=== PATIENT | female | born 1950 | race Caucasian/White ===

== ENCOUNTER 2017-03-12 10:19 | Emergency (ER) | payer BC ==
[2017-03-12 12:40] VITALS: BP 133/89
[2017-03-12] MEDS ORDERED: Albuterol 2.5 MG/3 ML NEB.SOL* (0.083%) INH ONE (12:54)
[2017-03-12] MEDS ORDERED: predniSONE TAB* 20 MG PO ONE (12:54)
--- NOTE | 2017-03-12 12:54 | UC ---
Respiratory Complaint HPI - HPI Summary HPI Summary: 66 y/o female presents to the urgent care c/o persistent dry cough, nasal congestion with yellowish phlegm for the past 2 weeks. Symptoms improved. But about 5 days ago symptoms got worse. Now for the past 2 days, she feels mild SOB with wheezing. she thinks her asthma symptoms have been triggered. Pt denies fever, chest pain, abdominal pain, N/V/D. - History of Current Complaint Chief Complaint: UCRespiratory Stated Complaint: cold symptoms Time Seen by Provider: 03/12/17 12:46 Hx Obtained From: Patient Hx Last Menstrual Period: menopausal ?: No Onset/Duration: Gradual Onset, Lasting Weeks - 2 weeks, Still Present Timing: Intermittent Episodes Severity Initially: Mild Severity Currently: Moderate Pain Intensity: 0 Pain Scale Used: 0-10 Numeric Character: Cough: Productive, Sputum Description: - yellowish Aggravating Factors: Deep Breaths Alleviating Factors: Bronchodilator Associated Signs And Symptoms: Positive: Dyspnea, Wheezing, URI, Nasal Congestion. Negative: Fever - Risk Factors Pulmonary Embolism Risk Factors: Negative Cardiac Risk Factors: Negative Pseudomonas Risk Factors: Negative Tuberculosis Risk Factors: Negative - Allergies/Home Medications Allergies/Adverse Reactions: Allergies Allergy/AdvReac Type Severity Reaction Status Date / Time Shellfish Allergy Allergy Vomiting Verified 03/12/17 12:40 dust, mold Allergy Congestion Uncoded 03/12/17 12:40 skunk Allergy Wheezing Uncoded 03/12/17 12:40 PMH/Surg Hx/FS Hx/Imm Hx Previously Healthy: Yes Respiratory History: Asthma - Surgical History Surgical History: Yes Surgery Procedure, Year, and Place: c section x 3, appy, hysterectomy - Family History Family History: Breast Cancer - Social History Occupation: Employed Full-time Lives: With Family Alcohol Use: Rare Substance Use Type: None Smoking Status (MU): Former Smoker Review of Systems Constitutional: Negative Skin: Negative Eyes: Negative ENT: Nasal Discharge - yellowish nasal discharge Respiratory: Shortness Of Breath, Cough, Other - wheezing Cardiovascular: Negative Gastrointestinal: Negative Genitourinary: Negative Motor: Negative Neurovascular: Negative Musculoskeletal: Negative Neurological: Negative Psychological: Negative Is Patient Immunocompromised?: No All Other Systems Reviewed And Are Negative: Yes Physical Exam Triage Information Reviewed: Yes Vital Signs: Initial Vital Signs Temp 98.4 F 03/12/17 12:29 Pulse 98 03/12/17 12:29 Resp 16 03/12/17 12:29 BP 133/89 03/12/17 12:29 Pulse Ox 97 03/12/17 12:29 - Additional Comments Vital Signs Reviewed: Yes General: well developed, well nourished female sitting in the examining table w/ o any apparent distress Eyes: Positive: Conjunctiva Clear - PERRLA, EOMI, fundi grossly normal ENT: Positive: Normal ENT inspection, Hearing grossly normal, Pharynx normal, Nasal congestion - edematous and erythematous nasal mucosa, Nasal drainage - yellowish drainage, TMs normal. Negative: Tonsillar swelling, Tonsillar exudate Neck: Positive: Supple, Nontender, No Lymphadenopathy Respiratory: no orthopnea or dyspnea. Able to speak in full sentences, no retractions or accessory muscle use, no tripod position, stridor, or head bobbing. mild wheezing in the left upper posterior lung , no rhonchi, rales. Cardiovascular: Positive: RRR, No Murmur, Pulses Normal, Brisk Capillary Refill Abdomen Description: Positive: Nontender, No Organomegaly, Soft. Negative: CVA Tenderness (R), CVA Tenderness (L) Bowel Sounds: Positive: Present Musculoskeletal Exam: Normal Musculoskeletal: Positive: Strength Intact, ROM Intact, No Edema Neurological Exam: Normal Psychological Exam: Normal Skin Exam: Normal UC Diagnostic Evaluation - Laboratory O2 Sat by Pulse Oximetry: 97 Respiratory Course/Dx - Course Course Of Treatment: 66 y/o female presents to the urgent care c/o persistent dry cough, nasal congestion with yellowish phlegm for the past 2 weeks. Symptoms improved. But about 5 days ago symptoms got worse. Now for the past 2 days, she feels mild SOB with wheezing. she thinks her asthma symptoms have been triggered. Pt denies fever, chest pain, abdominal pain, N/V/D. Hx obtained. Pt with miold B/L wheezing in the left upper lungs, no rhonchi, crackles or rales on examination. O2Sat: 97%. Pt with an asthma exacerbation. Pt given albuterol treatment and Prednisone PO at the clinic. Pt tolerated well medication and felt better. Patient prescribed Prednisone taper dose and albuterol inhaler and Tessalon PO for cough as directed below. The patient was recommended to increase fluid intake. Take medications as recommended. Pt advised to go to the nearest ER if symptoms worsen. Otherwise f/u with her PCP for further managment in her asthma. Patient understood and agree with plan of care. - Differential Dx/Diagnosis Differential Diagnosis/HQI/PQRI: Asthma, Bronchitis, Lower Resp Infection, Other - pneumonia Provider Diagnoses: 1- Asthma exacerbation. 2-Cough Discharge - Discharge Plan Condition: Stable Disposition: HOME Prescriptions: Albuterol HFA INHALER* [Ventolin HFA Inhaler*] 2 puff INH Q4H PRN #1 mdi PRN Reason: Wheezing Benzonatate CAP* [Tessalon 100 MG CAP*] 100 mg PO TID PRN #15 cap PRN Reason: Cough predniSONE TAB* [Deltasone TAB*] 20 mg PO DAILY #8 tab Patient Education Materials: Asthma (ED) Forms: *Work Release Referrals: Penelope Watters PA [Primary Care Provider] - 3 Days Additional Instructions: 1-Take Prednisone PO as directed continue using the albuterol inhaler. Take Tessalon PO tabs to alleviate cough 2- If symptoms do not improve or worsen or your develop SOB with fever and severe wheezing please go immediately to the ER further evaluation and treatment. 3- F/u with your PCP in 3 days for further management on your Asthma
== END 2017-03-12 14:00 | disposition home or self-care (01) ==
LOC: UCCORT 10:19
DX: J45.901 Unspecified asthma with (acute) exacerbation (principal); R05 Cough; Z90.710 Acquired absence of both cervix and uterus; Z90.89 Acquired absence of other organs; Z87.891 Personal history of nicotine dependence
CPT/HCPCS: 99202; G0463; J7512

== ENCOUNTER 2018-08-27 09:06 | Emergency (ER) | payer MEDICARE ==
[2018-08-27 09:21] VITALS: BP 146/74
[2018-08-27] MEDS ORDERED: Albuterol 2.5 MG/3 ML NEB.SOL* (0.083%) INH ONE (09:25)
--- NOTE | 2018-08-27 09:42 | UC ---
Respiratory Complaint HPI - HPI Summary HPI Summary: cough x 1 days wheezing, chest tightness, sob, cough is dry , mild nasal congestion , pnd, no sore throat, no fever, no chills hx of asthma , no better with her albuterol inh - History of Current Complaint Chief Complaint: UCRespiratory Stated Complaint: ST,COUGH Time Seen by Provider: 08/27/18 09:23 Hx Obtained From: Patient Hx Last Menstrual Period: menopausal Onset/Duration: Gradual Onset, Lasting Days - 2, Still Present Timing: Constant Severity Initially: Moderate Severity Currently: Moderate Pain Intensity: 0 Character: Cough: Nonproductive Aggravating Factors: Allergens, Exertion, Deep Breaths Alleviating Factors: Nothing Associated Signs And Symptoms: Positive: Dyspnea, Wheezing, URI, Nasal Congestion. Negative: Fever, Chills, Hemoptysis, Dizziness, Calf Pain, Calf Swelling - Allergies/Home Medications Allergies/Adverse Reactions: Allergies Allergy/AdvReac Type Severity Reaction Status Date / Time shellfish derived Allergy Vomiting Verified 08/27/18 09:18 dust, mold Allergy Congestion Uncoded 08/27/18 09:18 skunk Allergy Wheezing Uncoded 08/27/18 09:18 Home Medications: Home Medications Loratadine/Pseudoephedrine [Allergy Relief D-24Hr Tablet] 1 tab PO DAILY [History Confirmed 08/27/18] PMH/Surg Hx/FS Hx/Imm Hx - Additional Past Medical History Additional PMH: endometriosis, miscarriage, HDH, dyslexia, osteoporosis, left 5th finger fx Respiratory History: Asthma - Surgical History Surgical History: Yes Surgery Procedure, Year, and Place: c section x 3, appy, hysterectomy - Family History Known Family History: Negative: Diabetes Family History: Breast Cancer - Social History Alcohol Use: Occasionally Substance Use Type: None Smoking Status (MU): Former Smoker Review of Systems All Other Systems Reviewed And Are Negative: Yes Constitutional: Positive: Negative Skin: Positive: Negative Eyes: Positive: Negative ENT: Positive: Sinus Congestion Respiratory: Positive: Shortness Of Breath, Cough Cardiovascular: Positive: Negative Is Patient Immunocompromised?: No Physical Exam Triage Information Reviewed: Yes Appearance: Well-Appearing, No Pain Distress, Well-Nourished Vital Signs: Initial Vital Signs Temp 97.8 F 08/27/18 09:14 Pulse 74 08/27/18 09:14 Resp 18 08/27/18 09:14 BP 146/74 08/27/18 09:14 Pulse Ox 99 08/27/18 09:14 Vital Signs Reviewed: Yes Eye Exam: Normal Eyes: Positive: Conjunctiva Clear ENT: Positive: Normal ENT inspection, Hearing grossly normal, Pharynx normal, Nasal congestion Neck: Positive: Supple, Nontender, No Lymphadenopathy Respiratory: Positive: No respiratory distress, No accessory muscle use, Wheezing Cardiovascular: Positive: RRR, No Murmur, Pulses Normal Skin Exam: Normal Respiratory Course/Dx - Differential Dx/Diagnosis Provider Diagnosis: Asthma exacerbation Discharge - Sign-Out/Discharge Documenting (check all that apply): Patient Departure All imaging exams completed and their final reports reviewed: No Studies - Discharge Plan Condition: Stable Disposition: HOME Prescriptions: predniSONE [Prednisone 20 MG TAB] 20 mg PO BID WITH MEALS #10 tablet Patient Education Materials: Asthma (DC) Referrals: Penelope Watters PA [Primary Care Provider] - 5 Days - Billing Disposition and Condition Condition: STABLE Disposition: Home
== END 2018-08-27 10:13 | disposition home or self-care (01) ==
LOC: UCCORT 09:06
DX: J45.901 Unspecified asthma with (acute) exacerbation (principal); R05 Cough; R09.81 Nasal congestion; Z91.013 Allergy to seafood; Z91.048 Other nonmedicinal substance allergy status; Z87.891 Personal history of nicotine dependence
CPT/HCPCS: 99212; G0463

== ENCOUNTER 2019-05-01 08:52 | Emergency (ER) | payer MEDICARE ==
--- OUTSIDE RECORDS SUMMARY | 2019-05-01 09:03 | XMS REPORT | Continuity of Care Document ---
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 Information Available Social History Type Date Description Comments Sex Unknown Tobacco Use Start: Unknown End: Unknown Patient is a former smoker Smoking Status Reviewed: 04/04/19 Patient is a former smoker Allergies, Adverse Reactions, Alerts Description No Known Drug Allergies Medications Active Medications SIG Qnty Indications Ordering Date Provider Loratadine 1 tab by mouth 60caps Unknown 10mg Capsules at bedtime as needed Montelukast Sodium 1 by mouth Unknown 10mg every day Tablets Cyclobenzaprine HCL take 1 tab by Unknown 10mg mouth 3 times a Tablets day as needed Aleve Unknown 220mg Tablets Kayleen-D 24 Hour as needed Unknown Allergy & Congestion 180-240mg Tablets ER 24HR Albuterol Sulfate HFA Unknown 108(90Base) mcg/Act Aerosol Immunizations Description No Information Available Vital Signs Date Vital Result Comment 04/04/2019 8:22am Height 64 inches 5'4" Weight 155.00 lb Heart Rate 107 /min BP Systolic Sitting 112 mmHg BP Diastolic Sitting 68 mmHg Respiratory Rate 12 /min Pain Level 0 O2 % BldC Oximetry 97 % BMI (Body Mass Index) 26.6 kg/m2 02/21/2019 9:32am Height 64 inches 5'4" Weight 157.00 lb Heart Rate 90 /min BP Systolic Sitting 120 mmHg BP Diastolic Sitting 73 mmHg Respiratory Rate 18 /min Body Temperature 97.8 F Pain Level 9 with use O2 % BldC Oximetry 98 % BMI (Body Mass Index) 26.9 kg/m2 Results Description No Information Available Procedures Date Code Description Status 02/21/2019 69309 Rad Shoulder Comp, Min. 2 Views Completed Medical Devices Description No Information Available Encounters Type Date Location Provider Dx Diagnosis Office Visit 04/04/2019 [facility] Fan Rios M75.02 Adhesive 8:30a at [place] capsulitis of left shoulder Office Visit 02/21/2019 [facility] Fan Rios M75.02 Adhesive 9:30a at [place] capsulitis of left shoulder Assessments Date Code Description Provider 04/04/2019 M75.02 Adhesive capsulitis of left shoulder Fan Rios MD 02/24/2019 M25.512 Pain in left shoulder Fan Rios MD 02/21/2019 M25.512 Pain in left shoulder Fan Rios MD 02/21/2019 M75.02 Adhesive capsulitis of left shoulder Fan Rios MD Plan of Treatment Future Appointment(s):07/04/2019 8:30 am - Fan Rios MD at [facility] [place]/06/2019 - Fan Rios [id number] Adhesive capsulitis of left shoulderFollow up:Follow up: 3 months Functional Status Description No Information Available Mental Status Description No Information Available Referrals Description No Information Available
[2019-05-01 09:15] VITALS: BP 111/75
--- NOTE | 2019-05-01 09:56 | UC ---
Respiratory Complaint HPI - HPI Summary HPI Summary: 68-year-old female presents with dizziness. She states she has had a cough intermittently for 4 weeks with sinus pressure. On day her symptoms returned with cough worsening. Over the last day or so she has had some increased dizziness and feeling off balance. She denies any ear pain or fevers. She denies any shortness of breath or chest pressure. Movement worsens symptoms. Rest improvement of symptoms. She is having no vision changes or headache. - History of Current Complaint Chief Complaint: UCGeneralIllness Stated Complaint: DIZZYNESS,COUGH Time Seen by Provider: 05/01/19 09:37 Hx Obtained From: Patient Hx Last Menstrual Period: menopausal ?: No Timing: Constant Pain Intensity: 1 Character: Cough: Productive Aggravating Factors: Exertion Alleviating Factors: Upright Position Associated Signs And Symptoms: Positive: URI, Nasal Congestion, Sinus Discomfort - Allergies/Home Medications Allergies/Adverse Reactions: Allergies Allergy/AdvReac Type Severity Reaction Status Date / Time shellfish derived Allergy Vomiting Verified 08/27/18 09:18 dust, mold Allergy Congestion Uncoded 08/27/18 09:18 skunk Allergy Wheezing Uncoded 08/27/18 09:18 Home Medications: Home Medications Diphenhydra/Phenyleph/Acetamin [Delsym Cough + Cold Night 12.5-5-325 mg/10Ml] 1 dose PO ONCE 05/01/19 [History Confirmed 05/01/19] Montelukast Sodium TAB* [Singulair TAB*] 10 mg PO DAILY 05/01/19 [History Confirmed 05/01/19] Naproxen Sodium [Aleve] 220 mg PO ONCE 05/01/19 [History Confirmed 05/01/19] PMH/Surg Hx/FS Hx/Imm Hx Previously Healthy: Yes - Surgical History Surgical History: Yes Surgery Procedure, Year, and Place: c section x 3, appy, hysterectomy - Family History Known Family History: Positive: Hypertension Negative: Diabetes Family History: Breast Cancer - Social History Occupation: Employed Full-time Alcohol Use: Rare Substance Use Type: None Smoking Status (MU): Former Smoker When Did the Patient Quit Smoking/Using Tobacco: quit in her 20s Review of Systems All Other Systems Reviewed And Are Negative: Yes Constitutional: Positive: Fatigue ENT: Positive: Nasal Discharge, Sinus Congestion, Sinus Pain/Tenderness, Other - dizziness Physical Exam - Summary Physical Exam Summary: pt declined junior hillpike d/t she states it would worsen the vertigo Triage Information Reviewed: Yes Appearance: Well-Appearing, No Pain Distress, Well-Nourished Vital Signs: Initial Vital Signs Temp 98.2 F 05/01/19 09:09 Pulse 79 05/01/19 09:09 Resp 17 05/01/19 09:09 BP 111/75 05/01/19 09:09 Pulse Ox 99 05/01/19 09:09 Vital Signs Reviewed: Yes Eye Exam: Normal ENT Exam: Normal ENT: Positive: TM dull - right Dental Exam: Normal Neck exam: Normal Neck: Positive: 1 Respiratory Exam: Normal Cardiovascular Exam: Normal Musculoskeletal Exam: Normal Neurological Exam: Normal, Other - CN 2-12 grossly intact Neurological: Positive: Alert Psychological Exam: Normal Skin Exam: Normal Respiratory Course/Dx - Course Course Of Treatment: patient with vertigo like symptoms at this time. Right ear with moderate serous effusion with dull TM. No injection. Vertigo like symptoms. No stroke symptoms at this time. No neurological deficits. No significant risk factors for stroke. We discussed signs and symptoms of if developing for stroke to go emergency room immediately. She states she is aware and agreeable to plan at this time. Given prescription for meclizine. Avoid driving. Consider Flonase to go with her antihistamine. If any concerns, to emergency room. Patient wasn 't agreeable to plan. - Differential Dx/Diagnosis Provider Diagnosis: BPPV (benign paroxysmal positional vertigo) Discharge ED - Sign-Out/Discharge Documenting (check all that apply): Patient Departure All imaging exams completed and their final reports reviewed: No Studies - Discharge Plan Condition: Good Disposition: HOME Prescriptions: Meclizine TAB* [Antivert 12.5 TAB*] 25 mg PO TID PRN #20 tab PRN Reason: Dizziness Patient Education Materials: Vertigo (ED) Forms: *Work Release Referrals: HARJEET Ortega [Primary Care Provider] - 3 Days - Billing Disposition and Condition Condition: GOOD Disposition: Home
== END 2019-05-01 10:16 | disposition home or self-care (01) ==
LOC: UCCORT 08:52
DX: H81.11 Benign paroxysmal vertigo, right ear (principal); Z91.013 Allergy to seafood; Z91.09 Other allergy status, other than to drugs and biological substances; Z87.891 Personal history of nicotine dependence
CPT/HCPCS: 99212; G0463